=== PATIENT | female | born 1985 ===

== ENCOUNTER 2018-01-23 14:30 | Outpatient (CLI) | payer OTHER ==
[~2018-01-23] VITALS: Ht 149.9 cm; Wt 75.3 kg
== END 2018-01-23 14:45 | disposition home or self-care (01) ==
LOC: OFIC 805 14:30
DX: H81.13 Benign paroxysmal vertigo, bilateral (principal)

== ENCOUNTER 2018-05-22 14:08 | Outpatient (CLI) | payer OTHER | END 2018-05-22 14:25 | disposition home or self-care (01) | LOC: OFIC 805 14:08 | DX: H81.10 Benign paroxysmal vertigo, unspecified ear (principal) ==